=== PATIENT | male | born 1990 | race Caucasian/White ===

== ENCOUNTER 2020-09-04 10:11 | Outpatient (CLI) | payer BC, SELFPAY ==
--- NOTE | 2020-09-04 10:29 | XR_ITS ---
WS: [id number] CERVICAL SPINE 3 VIEWS HISTORY: radicular pain at T4 to T6 COMPARISON: None available. Mild straightening of the normal cervical lordosis. No fractures. C7-T1 are not well-visualized in th e lateral projection. Lateral masses are aligned. Odontoid is intact. Disc spaces and vertebral body heights are well-maintained. Soft tissues are normal. XR/XR cervical spine 3V* [id number] IMPRESSION: Mild straightening of the cervical lordosis may be positional or due to mild sp asm. Poor visualization of the C7-T1 level.
--- NOTE | 2020-09-04 10:29 | XR_ITS ---
WS: [id number] LUMBAR SPINE: 3 VIEWS TECHNIQUE: AP, lateral and L5-S1 spot. HISTORY: history of trauma to lower back COMPARISON: 07/21/2017 Mild retrolisthesis of L5 by 5 mm is stable. No fractures. Pedicles are all identified. No loss of disc space or vertebral body height. SI joints are symmetric bilaterally. No soft tissue abnormalities. XR/XR lumbar spine 2-3V* [id number] IMPRESSION: 1. 5 mm retrolisthesis is similar to prior studies. 2. No acute fracture.
--- NOTE | 2020-09-04 10:29 | XR_ITS ---
WS: [id number] THORACIC SPINE TECHNIQUE: AP and lateral views are performed. HISTORY: thoracic pain COMPARISON: None available. Mild straightening of the normal thoracic kyphosis. No fractures. Disc spaces are normal. Pedicles ar e all identified. There is a bridging osteophyte on the RIGHT between T7 and T8. XR/XR thoracic spine 2V [id number] IMPRESSION: No acute thoracic spine abnormalities. Mild straightening of the normal kyphosis.
== END 2020-09-04 10:12 | disposition home or self-care (01) ==
PROVIDERS: PCP Family Medicine; Visit Provider Family Medicine
DX: M54.14 Radiculopathy, thoracic region (principal); M54.6 Pain in thoracic spine; Z87.828 Personal history of other (healed) physical injury and trauma
CPT/HCPCS: 72040; 72070; 72100

== ENCOUNTER → 2021-04-18 09:58 | Outpatient (BNVA) | payer BC, SELFPAY | PROVIDERS: PCP Family Medicine; Visit Provider Family Medicine | DX: R35.0 Frequency of micturition (principal); R73.9 Hyperglycemia, unspecified; N45.1 Epididymitis | CPT/HCPCS: 36416; 81000; 82962; 83036 ==

== ENCOUNTER → 2021-07-12 09:24 | Outpatient (BNVA) | payer BC, SELFPAY | PROVIDERS: PCP Family Medicine; Visit Provider Urology | DX: N45.1 Epididymitis (principal); E11.9 Type 2 diabetes mellitus without complications; N41.1 Chronic prostatitis; L29.3 Anogenital pruritus, unspecified | CPT/HCPCS: 81003 ==

== ENCOUNTER → 2021-08-27 15:05 | Outpatient (BNVA) | payer BC, SELFPAY | PROVIDERS: PCP Family Medicine; Visit Provider Urology | DX: N41.1 Chronic prostatitis (principal) | CPT/HCPCS: 81003 ==

== ENCOUNTER 2021-09-03 09:01 | Outpatient (CLI) | payer BC, SELFPAY ==
--- NOTE | 2021-09-03 09:30 | MR_ITS ---
WS: [id number] MRI LUMBAR SPINE NONCONTRAST HISTORY: worsening numbness in feet COMPARISON: None available. TECHNIQUE: Sagittal and axial multisequence imaging is submitted. Straightening of the normal lumbar lordosis. No fracture or marrow edema. Moderate narrowing of the T12-L1 disc space. Mild narrowing at L5-S1. Conus terminates normally at L1-2 disc level. T12-L1: There is a large posterior disc protrusion that extends intraosseous into the posterior infer ior endplate of T12 and the posterior superior endplate of L1. Large associated osteophytes and poste rior displacement of the posterior longitudinal ligament. This combination of disc and osteophyte cau sing significant encroachment upon the conus. Posterior displacement with significant mass effect and stenosis. Significant central and bilateral subarticular recess stenosis. Cannot confirm edema or si gnal abnormality within the cord. L1-L2: Normal. L2-L3: Normal. L3-L4: Mild ligamentum flavum disease and facet arthritis. L4-L5: Mild annular disc bulge. Mild ligamentum flavum disease and facet arthritis. Mild encroachment and narrowing of the foramina b ilaterally. No high-grade stenosis. No significant contact on the nerve roots. L5-S1: Large central disc protrusion extends into the subarticular recesses and caudal to the disc le james. Transverse diameter is 2.8 cm. Slightly greater encroachment into the LEFT lateral recess with p osterior displacement of the LEFT S1 nerve root. Contact with only minimal displacement of the RIGHT S1 nerve root. Mild bilateral foraminal narrowing due to disc and osteophyte disease. Paravertebral soft tissues are normal. MR/MR lumbar spine wo con* [id number] IMPRESSION: 1. Large central and bilateral subarticular disc protrusion extends caudad fro m the disc level at L5-S1. Central stenosis with significant contact on the S1 nerve roots bilaterally, LEFT greater than RIGHT. Mild bilateral foraminal sten osis at L5-S1. 2. Large posterior disc protrusion at T12-L1 with the disc herniation extendin g intraosseous and posterior with significant posterior displacement of the veronika gitudinal ligament. Additional moderate osteophyte formation. There is signific ant central and bilateral subarticular recess stenosis. No edema within the con us but there is posterior displacement of the conus.
== END 2021-09-03 09:02 | disposition home or self-care (01) ==
PROVIDERS: PCP Family Medicine; Visit Provider Family Medicine
DX: R20.2 Paresthesia of skin (principal); G62.9 Polyneuropathy, unspecified; M48.061 Spinal stenosis, lumbar region without neurogenic claudication; M51.27 Other intervertebral disc displacement, lumbosacral region; M48.07 Spinal stenosis, lumbosacral region; M51.24 Other intervertebral disc displacement, thoracic region; M25.78 Osteophyte, vertebrae; Z87.828 Personal history of other (healed) physical injury and trauma
CPT/HCPCS: 72148

== ENCOUNTER → 2021-09-10 09:46 | Outpatient (BNVA) | payer BC, SELFPAY | PROVIDERS: PCP Family Medicine; Visit Provider Family Medicine | DX: R73.9 Hyperglycemia, unspecified (principal); G62.9 Polyneuropathy, unspecified; M48.061 Spinal stenosis, lumbar region without neurogenic claudication; M51.36 Other intervertebral disc degeneration, lumbar region | CPT/HCPCS: 83036 ==

== ENCOUNTER → 2021-09-18 16:04 | Outpatient (BNVA) | payer BC, SELFPAY | PROVIDERS: PCP Family Medicine; Referring Provider Family Medicine; Visit Provider Orthopaedic Surgery | DX: Z87.828 Personal history of other (healed) physical injury and trauma (principal); M54.50 Low back pain, unspecified | CPT/HCPCS: 72120 ==

== ENCOUNTER → 2021-11-22 09:21 | Outpatient (BNVA) | payer BC, OTHER, SELFPAY | PROVIDERS: PCP Family Medicine; Visit Provider Urology | DX: N41.1 Chronic prostatitis (principal) | CPT/HCPCS: 81003 ==

== ENCOUNTER → 2022-02-18 15:48 | Outpatient (BNVA) | payer OTHER, SELFPAY | PROVIDERS: PCP Family Medicine; Visit Provider Urology | DX: N41.1 Chronic prostatitis (principal) | CPT/HCPCS: 81003 ==

== ENCOUNTER 2022-04-01 13:20 | Outpatient (RCR) | payer OTHER, SELFPAY | END 2022-04-20 23:59 | disposition home or self-care (01) | LOC: SPT 13:20 | PROVIDERS: PCP Family Medicine; Visit Provider Nurse Practitioner Family | DX: M51.27 Other intervertebral disc displacement, lumbosacral region (principal); M48.061 Spinal stenosis, lumbar region without neurogenic claudication; M54.16 Radiculopathy, lumbar region; Z98.1 Arthrodesis status | CPT/HCPCS: 97110; 97162 ==

== ENCOUNTER 2022-04-21 06:00 | Outpatient (RCR) | payer OTHER, SELFPAY | END 2022-05-21 23:59 | disposition home or self-care (01) | LOC: SPT 06:00 | PROVIDERS: PCP Family Medicine; Visit Provider Nurse Practitioner Family | DX: M51.27 Other intervertebral disc displacement, lumbosacral region (principal); Z98.1 Arthrodesis status; M48.061 Spinal stenosis, lumbar region without neurogenic claudication; M54.16 Radiculopathy, lumbar region | CPT/HCPCS: 97110 ==

== ENCOUNTER 2022-04-23 10:12 | Outpatient (CLI) | payer OTHER, SELFPAY ==
--- NOTE | 2022-04-23 10:19 | XRR_ITS ---
PROCEDURE INFORMATION: Exam: XR Thoracolumbar Spine Exam date and time: 04/23/2022 10:25 AM Age: 31 years old Clinical indication: Injury or trauma; Blunt trauma (contusions or hematomas); Injury date: 1 week ago; Prior surgery; Surgery type: T/l spine area; Patient HX: --pt had fusion t-l spine area, pain at junction after fall 1 weeka ago; Additional info: Arthrodesis status/lumbar radiculopathy/tspine pain TECHNIQUE: Imaging protocol: Radiologic exam of the thoracolumbar spine. Views: 2 views. COMPARISON: CR XR lumbar spine f/e only [id number] 09/18/2021 4:04 PM FINDINGS: Bones/joints: No spine curvature seen. The patient is status post T12-L2 posterior fusion. No evidence of hardware related complication. No fracture identified. Vertebral body heights are well preserved. There is mild degenerative changes, involving mainly T12-L1 and L5-S1, manifested by joint space narrowing, small endplate osteophytes and facet joint arthrosis. Soft tissues: Unremarkable. XR/XR thoracolumbar junct [id number] IMPRESSION: 1. No acute injury. 2. Status post T12-L2 posterior fusion, without evidence of hardware related complication.
== END 2022-04-23 10:13 | disposition home or self-care (01) ==
PROVIDERS: PCP Family Medicine; Visit Provider Nurse Practitioner Family
DX: M54.6 Pain in thoracic spine (principal); Z98.1 Arthrodesis status
CPT/HCPCS: 72080

== ENCOUNTER → 2022-05-06 16:28 | Outpatient (BNVA) | payer OTHER, SELFPAY | PROVIDERS: PCP Family Medicine; Visit Provider Urology | DX: N41.1 Chronic prostatitis (principal) | CPT/HCPCS: 81003 ==

== ENCOUNTER 2022-05-22 06:00 | Outpatient (RCR) | payer OTHER, SELFPAY | END 2022-06-18 23:59 | disposition home or self-care (01) | LOC: SPT 06:00 | PROVIDERS: PCP Family Medicine; Visit Provider Nurse Practitioner Family | DX: M51.27 Other intervertebral disc displacement, lumbosacral region (principal); Z98.1 Arthrodesis status; M48.061 Spinal stenosis, lumbar region without neurogenic claudication; M54.16 Radiculopathy, lumbar region | CPT/HCPCS: 97110 ==

== ENCOUNTER 2022-06-19 06:00 | Outpatient (RCR) | payer OTHER, SELFPAY | END 2022-07-10 12:34 | disposition home or self-care (01) | LOC: SPT 06:00 | PROVIDERS: PCP Family Medicine; Visit Provider Nurse Practitioner Family | DX: M48.061 Spinal stenosis, lumbar region without neurogenic claudication (principal); M54.16 Radiculopathy, lumbar region | CPT/HCPCS: 97110 ==

== ENCOUNTER → 2022-09-02 15:58 | Outpatient (BNVA) | payer OTHER, SELFPAY | PROVIDERS: Visit Provider Urology | DX: N41.1 Chronic prostatitis (principal) | CPT/HCPCS: 81003 ==

== ENCOUNTER 2022-10-21 09:38 | Outpatient (CLI) | payer OTHER, SELFPAY ==
--- NOTE | 2022-10-21 10:05 | XRR_ITS ---
PROCEDURE INFORMATION: Exam: XR Lumbosacral Spine Exam date and time: 10/21/2022 10:10 AM Age: 32 years old Clinical indication: Low back pain; Prior surgery; Surgery date: 6+ months; Surgery type: Fusion, laminectomy; Additional info: Lumbar radiculopathy TECHNIQUE: Imaging protocol: Radiologic exam of the lumbosacral spine. Views: 2 or 3 views. COMPARISON: CR XR thoracolumbar junct [id number] 04/23/2022 10:25 AM FINDINGS: Bones/joints: Postoperative findings seen T12, L1, L2 with posterior fusion and laminectomy findings. The hardware is intact without deformity displacement or fracture. No acute bone fracture. Normal alignment. Soft tissues: Unremarkable. XR/XR lumbar spine 2-3V* [id number] IMPRESSION: 1. Postoperative hardware and laminectomy T12-L1 and L2 2. Otherwise No acute findings.
== END 2022-10-21 09:39 | disposition home or self-care (01) ==
PROVIDERS: Visit Provider Nurse Practitioner Family
DX: M54.16 Radiculopathy, lumbar region (principal); Z98.1 Arthrodesis status; Z98.890 Other specified postprocedural states
CPT/HCPCS: 72100

== ENCOUNTER 2023-03-26 11:33 | Outpatient (CLI) | payer OTHER, SELFPAY ==
--- NOTE | 2023-03-26 11:35 | XR_ITS ---
WS: [id number] Lumbar spine, 3 views, 03/26/2023 Clinical Data: Fall with worsening back pain Comparison: None. Findings: No compression fractures or subluxation is seen. The posterior thoracolumbar fusion T12-L1 remains in tact. The bilateral pedicle screws and connecting rods remain the same. The laminectomies at T12, L 1 and L2 remain the same. No disc space narrowing is seen. The transverse processes and SI joints are normal. Impression: 1. Negative for compression fracture. 2. Stable thoracolumbar posterior fusion.
== END 2023-03-26 11:34 | disposition home or self-care (01) ==
LOC: RAD 11:33
PROVIDERS: PCP Family Medicine; Visit Provider Family Medicine
DX: M48.062 Spinal stenosis, lumbar region with neurogenic claudication (principal); M43.25 Fusion of spine, thoracolumbar region
CPT/HCPCS: 72100